=== PATIENT | male | born 1990 | race Caucasian/White ===

== ENCOUNTER 2017-12-12 19:17 | Emergency (ER) | payer BC ==
[2017-12-12 19:18] VITALS: BP 141/100; PULSE 61; RESP 16; TEMP 97.5; O2SAT 100
[2017-12-12 20:09] LABS: BILIRUBIN, URINE NEG (NEG); BLOOD, URINE NEG (NEG); GLUCOSE,URINE NEG (NEG); KETONE, URINE NEG (NEG); NITRITE,URINE POS (NEG); PH, URINE 6.5 (5.0-8.5); SQUAMOUS EPITHELIAL CELL URINE <1 /hpf (0-5); URINE COLOR DARK-BROWN (YELLW/STRAW); URINE LEUKOCYTE ESTERASE NEG (NEG)
--- NOTE | 2017-12-12 20:42 | PD ---
HPI Chief Complaint: Complaint Time Seen by Provider: 20:34 Travel History International Travel<30 days: No Contact w/Intl Traveler<30days: No Traveled to known affect area: No History of Present Illness HPI 27-year-old white male presents emergency Department with complaints of possible kidney stone. He states that approximately 3 AM yesterday morning he woke with sudden onset of left flank pain. He states the pain lasted for several hours then improved. He has associated nausea vomiting. Since then he has been having increased urinary frequency, urgency and dysuria. He is noted urine to be somewhat concentrated. Patient has taken [id number] Azo without relief. He denies any fever or chills. No nausea or vomiting now. He states that he does not have any flank pain currently. Denies any urethral discharge or rashes. PFSH Past Medical History Medical History: Denies Significant Hx Tetanus Vaccination: Unknown Influenza Vaccination: No Past Surgical History Narrative Surgical Right ACL reconstruction, epidural steroid block for his back. Other Surgery: Yes (rt knee surgery) Social History Alcohol Use: Yes Tobacco Use: No Substance Use: No Allergies-Medications (Allergen,Severity, Reaction): Coded Allergies: Penicillins (Verified Allergy, Severe, 12/12/17) Reported Meds & Prescriptions Reported Meds & Active Scripts Active Zofran Odt (Ondansetron Odt) 4 Mg Tab 4 Mg SL Q6HR PRN Percocet (Oxycodone-Acetaminophen) 5-325 mg Tab 1 Tab PO Q4H PRN Cipro (Ciprofloxacin HCl) 500 Mg Tab 500 Mg PO BID 7 Days Review of Systems Except as stated in HPI: all other systems reviewed are Neg Physical Exam Narrative GENERAL: Well-developed, well-nourished in no acute distress. Nontoxic appearing. HEAD: Normocephalic, atraumatic. EYES: Pupils equal round and reactive. Extraocular motions intact. No scleral icterus. No injection or drainage. ENT: TMs clear without erythema. The external auditory canals clear. Nose: clear . Posterior pharynx is pink and moist. No tonsillar edema or exudate. Uvula midline. Airway patent. NECK: Trachea midline.Supple, nontender, moves head freely. No central bony tenderness or spasm. CARDIOVASCULAR: Regular rate and rhythm without murmurs, gallops, or rubs. RESPIRATORY: Clear to auscultation. Breath sounds equal bilaterally. No wheezes , rales, or rhonchi. GASTROINTESTINAL: Abdomen soft, non-tender, nondistended. No hepato-splenomegaly , or palpable masses. No guarding. EXTREMITIES: No clubbing, cyanosis, or edema. No joint tenderness, effusion, or edema noted. BACK: Nontender without deformity or crepitance. No flank tenderness. Data Data Last Documented VS Vital Signs Date Time Temp Pulse Resp B/P (MAP) Pulse Ox O2 Delivery O2 Flow Rate FiO2 12/12/17 19:18 97.5 61 16 141/100 (114) 100 Room Air Orders Orders Urinalysis - C+S If Indicated (12/12/17 19:26) Gc And Chlamydia Pcr (12/12/17 19:26) Urine Culture (12/12/17 19:36) Ct Abd/Pel W/O Iv Contrast (12/12/17 20:35) Iv Access Insert/Monitor (12/12/17 20:35) Sodium Chlor 0.9% 1000 Ml Inj (Ns 1000 M (12/12/17 20:45) Ceftriaxone Inj (Rocephin Inj) (12/12/17 20:45) Complete Blood Count With Diff (12/12/17 20:37) Basic Metabolic Panel (Bmp) (12/12/17 20:37) Labs Laboratory Tests Test 12/12/17 19:36 12/12/17 21:00 Urine Color DARK-BROWN Urine Turbidity CLEAR Urine pH 6.5 Urine Specific [place] 1.020 Urine Protein NEG mg/dL Urine Glucose (UA) NEG mg/dL Urine Ketones NEG mg/dL Urine Occult Blood NEG Urine Nitrite POS Urine Bilirubin NEG Urine Urobilinogen 2.0 MG/DL Urine Leukocyte Esterase NEG Urine WBC 1 /hpf Urine Squamous Epithelial Cells <1 /hpf Microscopic Urinalysis Comment CULTURE INDICATED White Blood Count 7.0 TH/MM3 Red Blood Count 5.47 MIL/MM3 Hemoglobin 16.1 GM/DL Hematocrit 47.5 % Mean Corpuscular Volume 86.8 FL Mean Corpuscular Hemoglobin 29.5 PG Mean Corpuscular Hemoglobin Concent 34.0 % Red Cell Distribution Width 13.2 % Platelet Count 224 TH/MM3 Mean Platelet Volume 8.6 FL Neutrophils (%) (Auto) 60.3 % Lymphocytes (%) (Auto) 28.8 % Monocytes (%) (Auto) 9.4 % Eosinophils (%) (Auto) 1.2 % Basophils (%) (Auto) 0.3 % Neutrophils # (Auto) 4.2 TH/MM3 Lymphocytes # (Auto) 2.0 TH/MM3 Monocytes # (Auto) 0.7 TH/MM3 Eosinophils # (Auto) 0.1 TH/MM3 Basophils # (Auto) 0.0 TH/MM3 CBC Comment DIFF FINAL Differential Comment Blood Urea Nitrogen 20 MG/DL Creatinine 0.93 MG/DL Random Glucose 86 MG/DL Calcium Level 9.3 MG/DL Sodium Level 139 MEQ/L Potassium Level 4.2 MEQ/L Chloride Level 105 MEQ/L Carbon Dioxide Level 27.9 MEQ/L Anion Gap 6 MEQ/L Estimat Glomerular Filtration Rate 99 ML/MIN [facility] Medical Decision Making Medical Screen Exam Complete: Yes Emergency Medical Condition: Yes Medical Record Reviewed: Yes Interpretation(s) Laboratory Tests Test 12/12/17 19:36 12/12/17 21:00 Urine Color DARK-BROWN Urine Turbidity CLEAR Urine pH 6.5 Urine Specific [place] 1.020 Urine Protein NEG mg/dL Urine Glucose (UA) NEG mg/dL Urine Ketones NEG mg/dL Urine Occult Blood NEG Urine Nitrite POS Urine Bilirubin NEG Urine Urobilinogen 2.0 MG/DL Urine Leukocyte Esterase NEG Urine WBC 1 /hpf Urine Squamous Epithelial Cells <1 /hpf Microscopic Urinalysis Comment CULTURE INDICATED White Blood Count 7.0 TH/MM3 Red Blood Count 5.47 MIL/MM3 Hemoglobin 16.1 GM/DL Hematocrit 47.5 % Mean Corpuscular Volume 86.8 FL Mean Corpuscular Hemoglobin 29.5 PG Mean Corpuscular Hemoglobin Concent 34.0 % Red Cell Distribution Width 13.2 % Platelet Count 224 TH/MM3 Mean Platelet Volume 8.6 FL Neutrophils (%) (Auto) 60.3 % Lymphocytes (%) (Auto) 28.8 % Monocytes (%) (Auto) 9.4 % Eosinophils (%) (Auto) 1.2 % Basophils (%) (Auto) 0.3 % Neutrophils # (Auto) 4.2 TH/MM3 Lymphocytes # (Auto) 2.0 TH/MM3 Monocytes # (Auto) 0.7 TH/MM3 Eosinophils # (Auto) 0.1 TH/MM3 Basophils # (Auto) 0.0 TH/MM3 CBC Comment DIFF FINAL Differential Comment Blood Urea Nitrogen 20 MG/DL Creatinine 0.93 MG/DL Random Glucose 86 MG/DL Calcium Level 9.3 MG/DL Sodium Level 139 MEQ/L Potassium Level 4.2 MEQ/L Chloride Level 105 MEQ/L Carbon Dioxide Level 27.9 MEQ/L Anion Gap 6 MEQ/L Estimat Glomerular Filtration Rate 99 ML/MIN Last 24 hours Impressions Abdomen/Pelvis CT 12/12/172034 Signed Impressions: Service Date/Time: Tuesday, December 12, 2017 21:40 - CONCLUSION: 1. Tiny 2 mm calculus at the left UVJ or just within the bladder. No evidence for significant obstructive uropathy at the current time. Javon Lopez MD Differential Diagnosis Differential diagnoses: Kidney stone, ureterolithiasis, in fact a kidney stone, UTI, STD Narrative Course IV access is obtained. Patient's given a liter bolus of normal saline. 1 g of Rocephin IV. CT scan of the abdomen and pelvis to rule out stone, CBC and chemistry pending. Urinalysis is positive for nitrates. Patient's CAT scan does reveal a small 2 mm stone at the left UVJ or just into the bladder. Patient appears very comfortable. I suspect that the patient will do well at home. He does have nitrates in his urine he will be covered for possible UTI versus infection of his stone. He does not look toxic in any way. His white blood count is normal. Patient will be discharged on Cipro and a limited course of Percocet and Zofran. He referred to urology. Urine strainers. Diagnosis Primary Impression: left ureterolithiasis Patient Instructions: General Instructions Additional Instructions: Rest. Increase fluids. Medications: Cipro, Zofran, Percocet. Strain all urine and collect your Stone. Follow-up with a urologist in the next 3-5 days. Return to the ER if any problems. Med/Other Pt SpecificInfo: Prescription(s) given Scripts Ondansetron Odt (Zofran Odt) 4 Mg Tab 4 MG SL Q6HR Y for Nausea/Vomiting, #6 TAB 0 Refills Prov: Eulogio Montes De Oca MD 12/12/17 Oxycodone-Acetaminophen (Percocet) 5-325 mg Tab 1 TAB PO Q4H Y for PAIN, #6 TAB 0 Refills Prov: Eulogio Montes De Oca MD 12/12/17 Ciprofloxacin (Cipro) 500 Mg Tab 500 MG PO BID for Infection for 7 Days, #14 TAB 0 Refills Prov: Eulogio Montes De Oca MD 12/12/17 Disposition: 01 DISCHARGE HOME Condition: Stable Javon Gonzalez Dec 12, 2017 20:42
[2017-12-12] MEDS ORDERED: SODIUM CHLOR 0.9% 1000 ML INJ 1,000 ML IV ONE (20:45)
[2017-12-12] MEDS ORDERED: cefTRIAXone INJ 1,000 MG in SODIUM CHLORIDE 0.9% INJ 100 ML IV ONE (20:45)
[2017-12-12 21:55] LABS: AUTOMATED NEUTROPHIL # 4.2 TH/MM3 (1.8-7.7); BASOPHIL % 0.3 % (0.0-2.0); EOSINOPHIL # 0.1 TH/MM3 (0-0.4); EOSINOPHIL % 1.2 % (0.0-4.0); HEMATOCRIT 47.5 % (39.0-51.0); HEMOGLOBIN 16.1 GM/DL (13.0-17.0); LYMPH % 28.8 % (9.0-44.0); MEAN CELL VOLUME 86.8 FL (80.0-100.0); MEAN CORPUSCULAR HEMOGLOBIN 29.5 PG (27.0-34.0); MEAN PLATELET VOLUME 8.6 FL (7.0-11.0); MONO % 9.4 % (0.0-8.0); MONOCYTE # 0.7 TH/MM3 (0-0.9); NEUT % 60.3 % (16.0-70.0); PLATELET COUNT 224 TH/MM3 (150-450); RED BLOOD COUNT 5.47 MIL/MM3 (4.50-5.90); RED CELL DISTRIBUTION WIDTH 13.2 % (11.6-17.2)
[2017-12-12 22:10] LABS: BICARBONATE 27.9 MEQ/L (21.0-32.0); CALCIUM 9.3 MG/DL (8.5-10.1); CREATININE 0.93 MG/DL (0.60-1.30)
--- NOTE | 2017-12-12 22:16 | RADRPT ---
EXAM DATE/TIME: 12/12/2017 21:40 [facility] COMPARISON: No previous studies available for comparison. INDICATIONS : Painful urination; possible renal calculi. ORAL CONTRAST: No oral contrast ingested. RADIATION DOSE: 8.51 CTDIvol (mGy) MEDICAL HISTORY : None SURGICAL HISTORY : Right knee surgery ENCOUNTER: Initial ACUITY: 1 day PAIN SCALE: 7/10 LOCATION: Bilateral flank TECHNIQUE: Volumetric scanning of the abdomen and pelvis was performed. Using automated exposure control and ad justment of the mA and/or kV according to patient size, radiation dose was kept as low as reasonably achievable to obtain optimal diagnostic quality images. DICOM format image data is available electro nically for review and comparison. FINDINGS: There is a small 2 mm calculus at the left ureterovesical junction or just within the bladder. There is no hydronephrosis or evidence for significant obstructive uropathy on the left. Right-sided unrema rkable. Visualized liver, spleen, adrenals, pancreas are unremarkable. No calcified gallstones. No free fluid . No bowel obstruction. No acute bony abnormalities. CONCLUSION: 1. Tiny 2 mm calculus at the left UVJ or just within the bladder. No evidence for significant obstruc tive uropathy at the current time. Javon Lopez MD on December 12, 2017 at 22:11 Board Certified Radiologist. This report was verified electronically.
[2017-12-12] MEDS ORDERED: ZOFR4TAB3 SL (22:27)
[2017-12-12] MEDS ORDERED: CIPR-9 PO (22:27)
[2017-12-12] MEDS ORDERED: PERC5TAB12 PO (22:27)
== END 2017-12-12 23:00 | disposition home or self-care (01) ==
LOC: NEPD 19:17
DX: N20.1 Calculus of ureter (principal); Z88.0 Allergy status to penicillin
CPT/HCPCS: 74176; 80048; 81001; 85025; 87086; 87491; 87591; 96374; 99284; J0696; J7030